=== PATIENT | female | born 1990 | race Caucasian/White ===

== ENCOUNTER → 2022-10-05 | Outpatient (REF) | payer OTHER | LOC: M SFHCDERM 17:05 | PROVIDERS: ATTEND Nurse Practitioner Family | DX: D23.21 Other benign neoplasm of skin of right ear and external auricular canal (principal) ==

== ENCOUNTER → 2022-11-27 | Outpatient (REF) | payer OTHER | LOC: M SFHCDERM 17:45 | PROVIDERS: ATTEND Dermatology | DX: D22.21 Melanocytic nevi of right ear and external auricular canal (principal); L90.5 Scar conditions and fibrosis of skin ==